=== PATIENT | female | born 1990 | race Caucasian/White ===

== ENCOUNTER 2016-08-28 17:14 | Emergency (ER) | payer OTHER ==
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
[~2016-08-28 17:14] MED LIST: BENADRYL25 M1 PO; IBUPROFEN800 MG PO; PRILOSEC PO; PROTONIX20 MG PO
== END 2016-08-28 18:47 | disposition home or self-care (01) ==
LOC: CFTX 17:14
DX: S29.012A Strain of muscle and tendon of back wall of thorax, initial encounter (principal); S13.9XXA Sprain of joints and ligaments of unspecified parts of neck, initial encounter; R07.9 Chest pain, unspecified; R51 Headache; V43.62XA Car passenger injured in collision with other type car in traffic accident, initial encounter
CPT/HCPCS: 71101; 72040; 84703; 99284